=== PATIENT | male | born 1990 | race Caucasian/White ===

== ENCOUNTER 2020-02-21 12:57 | Emergency (ER) | payer MEDICAID, MEDICARE ==
[~2020-02-21] VITALS: Ht 180.3 cm; Wt 73.0 kg
[~2020-02-21 12:57] MED LIST: ALPR0.25 PO; GABA600T7 PO; LISI1TAB23 PO; MORP60TA34 PO; NSAID PO; OXYC15TA3 PO; PANT40TA5 PO; Prednisone PO
--- NOTE | 2020-02-21 13:43 | NUR ---
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
--- NOTE | 2020-02-21 13:43 | NUR ---
PT AMBULATED TO RESTROOM WITH STEADY GAIT TO PROVIDE URINE SAMPLE. UA COLLECTED AND TAKEN TO LAB.
--- NOTE | 2020-02-21 13:54 | NUR ---
PER SW, PT GIVEN RESOURCES, ADDRESSES/PHONE NUMBERS, FOR TREATMENT FACILITIES. PT AWARE HE CAN BE PROVIDED [employer]AX[employer] VOUCHER FOR TRANSPORTATION TO FACILITY.
[2020-02-21 13:58] LABS: ALANINE AMINOTRANSFERASE 36 U/L (12-78); ALBUMIN 4.3 g/dL (3.4-5.0); ANION GAP 9 mmol/L (5-15); CALCIUM 9.4 mg/dL (8.5-10.1); CHLORIDE 104 mmol/L (98-107)
[2020-02-21 14:03] VITALS: BP 112/80
[2020-02-21 14:03] LABS: BASOPHILS # (AUTO) 0.03 x10^3/uL (0-0.1); BASOPHILS % (AUTO) 1 % (0-1); EOSINOPHILS # (AUTO) 0.18 x10^3/uL (0-0.4); EOSINOPHILS % (AUTO) 3 % (1-7); LYMPHOCYTES # (AUTO) 2.47 x10^3/uL (1-3.4); LYMPHOCYTES % (AUTO) 38 % (22-44); MD NO; MEAN CORPUSCULAR HGB CONC 33.2 g/dL (33.2-36.2); MEAN CORPUSCULAR VOLUME 87.3 fL (81-97); MONOCYTES # (AUTO) 0.71 x10^3/uL (0.2-0.8); MONOCYTES % (AUTO) 11 % (2-9); NEUTROPHILS # (AUTO) 3.18 x10^3/uL (1.8-6.8); NEUTROPHILS % (AUTO) 49 % (42-75); PLATELET COUNT 264 x10^3/uL (130-400); RED BLOOD COUNT 5.94 x10^6/uL (4.38-5.82); RED CELL DISTRIBUTION WIDTH 14.7 % (9.4-14.8)
[2020-02-21 14:05] LABS: ALKALINE PHOSPHATASE 133 U/L (45-117); BILIRUBIN,TOTAL 0.9 mg/dL (0.2-1.0); CREATININE 1.09 mg/dL (0.7-1.3); TOTAL PROTEIN 8.2 g/dL (6.4-8.2)
[2020-02-21 14:06] LABS: AMPHETAMINE SCREEN, URINE Positive (Negative); BARBITURATE SCREEN, URINE Negative (Negative); BENZODIAZEPINE SCREEN, URINE Negative (Negative); CANNABINOID SCREEN, URINE Positive (Negative); COCAINE SCREEN, URINE Negative (Negative); METHADONE SCREEN, URINE Negative (Negative); OPIATE SCREEN, URINE Negative (Negative)
--- NOTE | 2020-02-21 14:16 | NUR ---
ALL RESULTS ARE BACK AT THIS TIME. CHART UP FOR RECHECK.
--- NOTE | 2020-02-21 15:14 | NUR ---
PT GIVEN TAXI VOUCHER FOR [facility]. PT REFUSED VITALS.
== END 2020-02-21 15:15 | disposition home or self-care (01) ==
LOC: ED 13:27
DX: F11.20 Opioid dependence, uncomplicated (principal); F15.20 Other stimulant dependence, uncomplicated; F32.9 Major depressive disorder, single episode, unspecified; Z72.9 Problem related to lifestyle, unspecified
CPT/HCPCS: 36415; 80053; 80307; 85025; 99283

== ENCOUNTER 2020-07-08 23:41 | Emergency (ER) | payer MEDICAID ==
[~2020-07-08] VITALS: Ht 180.3 cm; Wt 80.0 kg
[~2020-07-08 23:41] MED LIST changes: -PANT40TA5 PO; +PANT40TA6 PO
[2020-07-08] MEDS ORDERED: MORPHINE SULFATE 4 MG/ML, 1ML ONE (23:54)
[2020-07-08] MEDS ORDERED: ONDANSETRON 2MG/ML, 2ML ONE (23:54)
[2020-07-08] MEDS: MORPHINE SULFATE 4 MG/ML, 1ML IVPush PRN (23:57)
[2020-07-09] MEDS ORDERED: SODIUM CHLORIDE FLUSH 10ML SYR IVF ONE
[2020-07-09] MEDS ORDERED: ONDANSETRON 2MG/ML, 2ML IVPush ONE
[2020-07-09] MEDS ORDERED: PANTOPRAZOLE 40 MG IV IVPush SCH
[2020-07-09] MEDS ORDERED: SODIUM CHLORIDE 0.9% 1,000ML IVBOLUS ONE
[2020-07-09] MEDS ORDERED: PANTOPRAZOLE 40 MG IV ONE (00:04)
[2020-07-09] MEDS ORDERED: KETOROLAC 30 MG/1 ML ONE (00:10)
[2020-07-09 00:11] LABS: ALANINE AMINOTRANSFERASE 125 U/L (12-78); ALBUMIN 4.2 g/dL (3.4-5.0); ANION GAP 6 mmol/L (5-15); BASOPHILS % (AUTO) 1 % (0-1); CALCIUM 9.4 mg/dL (8.5-10.1); CHLORIDE 109 mmol/L (98-107); CREATININE 0.83 mg/dL (0.7-1.3); EOSINOPHILS % (AUTO) 1 % (1-7); LYMPHOCYTES % (AUTO) 27 % (22-44); MD NO; MEAN CORPUSCULAR HGB CONC 33.8 g/dL (33.2-36.2); MEAN PLATELET VOLUME 8.8 fL (7.4-10.4); MONOCYTES % (AUTO) 6 % (2-9); NEUTROPHILS % (AUTO) 64 % (42-75); PLATELET COUNT 203 x10^3/uL (130-400); RED BLOOD COUNT 5.47 x10^6/uL (4.38-5.82); RED CELL DISTRIBUTION WIDTH 14.6 % (9.4-14.8)
[2020-07-09 00:13] LABS: ALKALINE PHOSPHATASE 124 U/L (45-117); BILIRUBIN,TOTAL 0.8 mg/dL (0.2-1.0)
[2020-07-09] MEDS ORDERED: METOCLOPRAMIDE 5 MG/ML, 2ML IVPush ONE (00:30)
[2020-07-09] MEDS ORDERED: KETOROLAC 30 MG/1 ML IVPush ONE (00:30)
[2020-07-09] MEDS ORDERED: MORPHINE SULFATE 4 MG/ML, 1ML ONE (00:39)
[2020-07-09] MEDS ORDERED: METOCLOPRAMIDE 5 MG/ML, 2ML ONE (00:40)
[2020-07-09] MEDS: MORPHINE SULFATE 4 MG/ML, 1ML IVPush PRN (00:43)
[2020-07-09 01:13] VITALS: BP 138/72
== END 2020-07-09 01:16 | disposition home or self-care (01) ==
LOC: ED 07-09 00:50
DX: R11.2 Nausea with vomiting, unspecified (principal); R10.84 Generalized abdominal pain; F17.200 Nicotine dependence, unspecified, uncomplicated
CPT/HCPCS: 36415; 80053; 83690; 85025; 96361; 96374; 96375; 96376; 99284; C9113; J1885; J2270; J2405; J2765; J7030